=== PATIENT | female | born 1945 | race Caucasian/White ===

== ENCOUNTER → 2024-12-04 | Outpatient (CLI) | payer OTHER, SELFPAY ==
--- NOTE | 2024-12-04 08:30 | MASS_PTH ---
PATIENT: EDDIE DICK LOC: [facility] #:[id number] AGE/SX: 79/F ROOM: RE12/04/[address]: Dr. Israel Ha MD : 1945 BED: DIS: 12/04/2024 SPEC #: [id number] RECD: 12/04/24 15:12 STATUS: EVETTE ALLENAndrea #: [id number] KENIA: 12/04/24 08:[address]: Israel Ha DEPT: SURGICAL PATHOLOGY RECD BY: Shane Fink ENTERED: 12/04/24 16:13 SP TYPE: Mass OTHR DR: No Primary Care Phys Tissues: A - Neck, NOS Procedures: Surgery Specimen Level III HEADER OPERATION: Excision left neck mass PRE-OP DIAGNOSIS: Localized swelling, mass and lump, neck TISSUE SUBMITTED: A- Left neck mass MICROSCOPIC DIAGNOSIS A. Soft tissue, left neck, excision: - Cyst with a nonkeratinizing squamous epithelial lining and underlying lymphoid tissue, compatible with a branchial cleft cyst, benign MICROSCOPIC DESCRIPTION Slides are reviewed. GROSS DESCRIPTION A. Received in formalin labeled with the patient's name and date of . Designated as, left neck mass, is a 3.0 x 2.8 x 0.4-1.2 cm pink-red to purple, focally fibrotic, deflated, semimembranous cyst. The external surfaces are inked black. Sections contain slightly hemorrhagic cyst contents. The cyst wall is granular and focally fibrotic, ranging 0.1 cm to 0.5 cm thick; there are a few, possible excrescences. Entirely submitted in 5 cassettes. SD 12/04/2024 CPT:[id number]
== END | disposition home or self-care (01) ==
LOC: LABSPEC 15:23
PROVIDERS: Referring Provider Otolaryngology; Visit Provider Otolaryngology
DX: R22.1 Localized swelling, mass and lump, neck (principal)
CPT/HCPCS: 88304